=== PATIENT | female | born 1940 | race Caucasian/White ===

== ENCOUNTER → 2018-06-14 18:15 | Outpatient (REF) | payer MEDICARE, MEDICAID, SELFPAY ==
[2018-06-14 22:32] LABS: Bilirubin Negative (Negative); Blood Large (Negative); Clarity Sl Cloudy; Glucose Negative (Negative); Ketones Negative (Negative); Leukocyte Esterase Large (Negative); Nitrite Positive (Negative); Specific Gravity 1.015 (1.005-1.025); Urobilinogen 0.2 EU/dL (Up TO 0.2); pH 5.5 (5-8)
[2018-06-14 22:48] LABS: Bacteria Many HPF (Negative); RBC >50 (0-2)
[2018-06-14 22:49] LABS: C & S Indicated? C&S Done As Ordered; WBC >50 HPF (0-5)
== END ==
LOC: NCHCN 18:15
PROVIDERS: PCP Family Medicine; Visit Provider Family Medicine
DX: N39.0 Urinary tract infection, site not specified (principal)
CPT/HCPCS: 87077; 81003; 81015; 87086; 87186

== ENCOUNTER → 2018-06-15 17:04 | Outpatient (REF) | payer MEDICARE, MEDICAID, SELFPAY ==
[2018-06-15 19:12] LABS: HCT 36.9 % (36.0-46.0); HGB 11.4 g/dL (12.0-15.5)
[2018-06-15 19:45] LABS: BUN 33 mg/dL (7-18); CREATININE 1.38 mg/dL (0.55-1.02); Calcium 8.4 mg/dL (8.5-10.1); Chloride 105 mmol/L (98-107); Estimated GFR 37.07 (mL/min/1.73m2); Glucose 187 mg/dL (70-100); Potassium 4.3 mmol/L (3.5-5.1); Sodium 140 mmol/L (136-145)
[2018-06-15 19:50] LABS: Hemoglobin A1C 6.6 % (4.5-6.2)
== END ==
LOC: NCHCN 17:04
PROVIDERS: PCP Family Medicine; Visit Provider Family Medicine
DX: E11.9 Type 2 diabetes mellitus without complications (principal); N39.0 Urinary tract infection, site not specified
CPT/HCPCS: 80048; 83036; 85014; 85018

== ENCOUNTER → 2018-07-16 09:41 | Outpatient (BNVA) | payer MEDICARE, MEDICAID, SELFPAY | PROVIDERS: Visit Provider Urology | DX: N20.0 Calculus of kidney (principal); E11.9 Type 2 diabetes mellitus without complications; Z79.84 Long term (current) use of oral hypoglycemic drugs | CPT/HCPCS: 99213 ==

== ENCOUNTER → 2018-08-19 09:48 | Outpatient (BNVA) | payer MEDICARE, MEDICAID, SELFPAY | PROVIDERS: PCP Family Medicine; Visit Provider Orthopaedic Surgery | DX: M17.12 Unilateral primary osteoarthritis, left knee (principal) | CPT/HCPCS: 20610; 99211; 99213; J7325 ==

== ENCOUNTER → 2018-11-18 10:06 | Outpatient (BNVA) | payer MEDICARE, MEDICAID, SELFPAY | PROVIDERS: PCP Family Medicine; Referring Provider Family Medicine; Visit Provider Orthopaedic Surgery | DX: M17.12 Unilateral primary osteoarthritis, left knee (principal) | CPT/HCPCS: 20610; 99211; 99212; J1040 ==

== ENCOUNTER → 2019-02-28 13:52 | Outpatient (BNVA) | payer MEDICARE, MEDICAID, SELFPAY | PROVIDERS: PCP Family Medicine; Referring Provider Family Medicine; Visit Provider Orthopaedic Surgery | DX: M17.12 Unilateral primary osteoarthritis, left knee (principal) | CPT/HCPCS: 20610; 99211; 99212; J7325 ==

== ENCOUNTER 2019-03-29 11:40 | Outpatient (CLI) | payer MEDICARE, MEDICAID, SELFPAY ==
[2019-03-29 12:22] LABS: Anion Gap 14.3 mmol/L (3-11); BUN 30 mg/dL (7-18); CO2 22.7 mmol/L (21.0-32.0); CREATININE 1.44 mg/dL (0.55-1.02); Calcium 8.6 mg/dL (8.5-10.1); Chloride 105 mmol/L (98-107); Glucose 169 mg/dL (70-100); Potassium 4.2 mmol/L (3.5-5.1); Sodium 142 mmol/L (136-145)
[2019-03-29 13:00] LABS: Hemoglobin A1C 6.9 % (4.5-6.2)
== END 2019-03-29 12:00 ==
PROVIDERS: PCP Family Medicine; Visit Provider Nurse Practitioner Adult Health
DX: E11.40 Type 2 diabetes mellitus with diabetic neuropathy, unspecified (principal)
CPT/HCPCS: 36415; 80048; 83036

== ENCOUNTER 2019-06-07 11:08 | Outpatient (REF) | payer MEDICARE, MEDICAID, SELFPAY ==
[2019-06-07 13:58] LABS: Hemoglobin A1C 6.9 % (4.5-6.2)
== END 2019-06-07 11:28 ==
LOC: LBO 11:08
PROVIDERS: PCP Family Medicine; Visit Provider Nurse Practitioner Adult Health
DX: E11.40 Type 2 diabetes mellitus with diabetic neuropathy, unspecified (principal)
CPT/HCPCS: 83036

== ENCOUNTER → 2019-06-14 10:03 | Outpatient (BNVA) | payer MEDICARE, MEDICAID, SELFPAY | PROVIDERS: PCP Family Medicine; Referring Provider Family Medicine; Visit Provider Orthopaedic Surgery | DX: M17.12 Unilateral primary osteoarthritis, left knee (principal) | CPT/HCPCS: 20610; 99211; 99213; J7325 ==

== ENCOUNTER → 2019-09-16 10:02 | Outpatient (BNVA) | payer MEDICARE, MEDICAID, SELFPAY | PROVIDERS: PCP Family Medicine; Referring Provider Family Medicine; Visit Provider Student in an Organized Health Care Education/Training Program | DX: M17.12 Unilateral primary osteoarthritis, left knee (principal) | CPT/HCPCS: 99214 ==

== ENCOUNTER 2019-10-18 10:30 | Outpatient (REF) | payer MEDICARE, MEDICAID, SELFPAY ==
[2019-10-18 11:38] LABS: Anion Gap 11.1 mmol/L (3-11); BUN 37 mg/dL (7-18); CO2 24.9 mmol/L (21.0-32.0); CREATININE 1.48 mg/dL (0.55-1.02); Calcium 8.6 mg/dL (8.5-10.1); Chloride 107 mmol/L (98-107); Estimated GFR 34.11 (mL/min/1.73m2); Glucose 97 mg/dL (74-106); Potassium 4.1 mmol/L (3.5-5.1); Sodium 143 mmol/L (136-145)
== END 2019-10-18 10:50 ==
LOC: LBO 10:30
PROVIDERS: PCP Family Medicine; Visit Provider Nurse Practitioner Adult Health
DX: I10 Essential (primary) hypertension (principal); I73.9 Peripheral vascular disease, unspecified; E11.40 Type 2 diabetes mellitus with diabetic neuropathy, unspecified
CPT/HCPCS: 36415; 80048

== ENCOUNTER 2019-12-13 10:22 | Outpatient (CLI) | payer MEDICARE, MEDICAID, SELFPAY | END 2019-12-13 10:42 | PROVIDERS: PCP Family Medicine; Visit Provider Nurse Practitioner Adult Health | DX: E11.40 Type 2 diabetes mellitus with diabetic neuropathy, unspecified (principal) | CPT/HCPCS: 36415; 83036 ==

== ENCOUNTER 2020-05-15 16:47 | Outpatient (REF) | payer MEDICARE, MEDICAID, SELFPAY ==
[2020-05-15 19:38] LABS: Anion Gap 11.6 mmol/L (3-11); BUN 40 mg/dL (7-18); CO2 25.4 mmol/L (21.0-32.0); CREATININE 1.45 mg/dL (0.55-1.02); Calcium 8.7 mg/dL (8.5-10.1); Chloride 105 mmol/L (98-107); Estimated GFR 34.83 (mL/min/1.73m2); Glucose 180 mg/dL (74-106); Potassium 4.5 mmol/L (3.5-5.1); Sodium 142 mmol/L (136-145)
== END 2020-05-15 17:07 ==
LOC: LBN 16:47
PROVIDERS: PCP Family Medicine; Visit Provider Nurse Practitioner Adult Health
DX: E11.40 Type 2 diabetes mellitus with diabetic neuropathy, unspecified (principal); I73.9 Peripheral vascular disease, unspecified
CPT/HCPCS: 80048; 85025

== ENCOUNTER 2020-07-20 12:37 | Outpatient (REF) | payer MEDICARE, MEDICAID, SELFPAY ==
[2020-07-20 14:32] LABS: Bilirubin Negative (Negative); Blood Negative (Negative); Clarity Clear (Clear); Glucose Negative (Negative); Ketones Negative (Negative); Leukocyte Esterase Negative (Negative); Nitrite Negative (Negative); Urobilinogen 0.2 EU/dL (Up TO 0.2)
[2020-07-20 14:54] LABS: Bacteria Rare HPF (Negative); C & S Indicated? C&S Done As Ordered; Casts Negative LPF (Negative); Crystals Negative HPF (Negative); Epithelial Cells Few HPF (Negative); Mucus Trace (Negative); RBC 0-2 HPF (0-2)
== END 2020-07-20 12:57 ==
LOC: LBN 12:37
PROVIDERS: PCP Family Medicine; Visit Provider Nurse Practitioner Adult Health
DX: R82.90 Unspecified abnormal findings in urine (principal)
CPT/HCPCS: 81003; 81015; 87086

== ENCOUNTER 2021-01-19 18:41 | Outpatient (REF) | payer MEDICARE, MEDICAID, SELFPAY ==
[2021-01-19 19:12] LABS: Abs Immature Grans 0.08 10^3/uL (0.0-0.06); Absolute Basophil Count 0.06 10^3/uL (0.0-0.2); Absolute Eosinophil Count 0.61 10^3/uL (0.0-0.7); Absolute Lymphocyte Count 1.97 10^3/uL (1.2-3.4); Absolute Monocyte Count 1.06 10^3/uL (0.1-0.8); Absolute Neutrophil Count 8.14 10^3/uL (1.2-6.7); Basophils % 0.5; Eosinophils % 5.1; HCT 35.7 % (36.0-46.0); HGB 10.9 g/dL (11.2-15.7); Immature Grans % 0.7; Lymphocytes % 16.5; MCH 26.2 pg (27.0-33.0); MCHC 30.5 % (32.0-36.0); MCV 85.8 fL (80-95); MPV 9.5 fL (8.0-11.0); Monocytes % 8.9; Neutrophils % 68.3; Nucleated RBC 0 %; Platelet Count 363 10^3/uL (130-400); RBC 4.16 10^6/uL (3.93-5.22); RDW 15.9 % (11.7-14.6); WBC 11.92 10^3/uL (4.4-10.8)
[2021-01-19 19:31] LABS: ALT 19 U/L (14-59); AST 18 U/L (15-37); Albumin 2.7 g/dL (3.4-5.0); Alkaline Phosphatase 96 U/L (46-116); Anion Gap 13.4 mmol/L (3-11); BUN 37 mg/dL (7-18); Bilirubin, Total 0.2 mg/dL (0.2-1.0); CO2 23.6 mmol/L (21.0-32.0); CREATININE 1.9 mg/dL (0.55-1.02); Calcium 8.3 mg/dL (8.5-10.1); Chloride 102 mmol/L (98-107); Estimated GFR 25.44 (mL/min/1.73m2); Glucose 226 mg/dL (74-106); Potassium 3.7 mmol/L (3.5-5.1); Sodium 139 mmol/L (136-145); TSH (W/Ref FT4) 2.06 uIU/mL (0.36-3.74); Total Protein 7.2 g/dL (6.4-8.2)
[2021-01-20 16:20] LABS: Hemoglobin A1C 7.6 % (<5.7)
== END 2021-01-19 18:42 | disposition home or self-care (01) ==
LOC: LBN 18:41
PROVIDERS: PCP Family Medicine; Visit Provider Family Medicine
DX: E11.9 Type 2 diabetes mellitus without complications (principal); L03.818 Cellulitis of other sites; I10 Essential (primary) hypertension
CPT/HCPCS: 80053; 83036; 84443; 85025

== ENCOUNTER 2021-01-28 12:48 | Inpatient (IN) | payer MEDICARE, MEDICAID, SELFPAY ==
[2021-01-28] VITALS (33 sets, daily range): BP systolic 103–142; BP diastolic 43–78; PULSE 66–94; RESP 2–31; TEMP 36.1–37; O2SAT 91–97
--- NOTE | 2021-01-28 12:45 | RT.EKG_ITS ---
APPROVED REPORT Exam: Resting ECG Patient Location: E HR:76 bpm ECG Measurements Heart Rate 76 AXIS IN 186 P 53 QRSd 76 QRS -32 QT 353 T 54 QTc 398 Conclusion Sinus rhythm...normal P axis, V-rate 60- 99 Left ventricular hypertrophy...multiple voltage criteria Inferior infarct, old...Q >35mS, II III aVF sinus rhythm at 76, left axis, inferior Q waves, no STEMI, nondiagnostic EKG
[2021-01-28 13:32] LABS: Absolute Basophil Count 0.08 10^3/uL (0.0-0.2); Absolute Eosinophil Count 0.22 10^3/uL (0.0-0.7); Absolute Lymphocyte Count 2.12 10^3/uL (1.2-3.4); Basophils % 0.5; Eosinophils % 1.4; HCT 38.7 % (36.0-46.0); HGB 12.1 g/dL (11.2-15.7); Immature Grans % 0.6; Lymphocytes % 13.5; MCH 26.8 pg (27.0-33.0); MCHC 31.3 % (32.0-36.0); MCV 85.8 fL (80-95); MPV 9.6 fL (8.0-11.0); Monocytes % 11.1; Neutrophils % 72.9; Nucleated RBC 0 %; RBC 4.51 10^6/uL (3.93-5.22); RDW 15.9 % (11.7-14.6); WBC 15.71 10^3/uL (4.4-10.8)
[2021-01-28 13:40] LABS: Absolute Monocyte Count 1.74 10^3/uL (0.1-0.8); Absolute Neutrophil Count 11.45 10^3/uL (1.2-6.7)
[2021-01-28 13:53] LABS: ALT 42 U/L (14-59); AST 24 U/L (15-37); Albumin 2.5 g/dL (3.4-5.0); Alkaline Phosphatase 101 U/L (46-116); Anion Gap 12.7 mmol/L (3-11); BUN 37 mg/dL (7-18); Bilirubin, Total 0.3 mg/dL (0.2-1.0); CO2 23.3 mmol/L (21.0-32.0); CREATININE 1.8 mg/dL (0.55-1.02); Calcium 8.6 mg/dL (8.5-10.1); Chloride 104 mmol/L (98-107); Estimated GFR 27.07 (mL/min/1.73m2); Glucose 120 mg/dL (74-106); Magnesium 2.2 mg/dL (1.8-2.4); Potassium 4.4 mmol/L (3.5-5.1); Sodium 140 mmol/L (136-145)
[2021-01-28 13:54] LABS: Diff Comment Diff Reviewed; Platelet Count 374 10^3/uL (130-400); RBC Morphology Normal
[2021-01-28 13:55] LABS: Troponin I < 0.05 ng/mL (<0.06)
[2021-01-28 14:21] LABS: NT-proBNP 1206 pg/mL (<300)
--- NOTE | 2021-01-28 14:29 | DI.RAD_ITS ---
EXAM: XR PORTABLE CHEST AP CLINICAL HISTORY: chest pain, cough TECHNIQUE: 2D digital imaging was performed. COMPARISON: CR CHEST 2 VIEWS PA,LAT from 11/08/2016 FINDINGS: The examination is limited due to poor inspiration and crowding of the pulmonary vasculature. The he art appears to be at the upper limits of normal to mildly enlarged. Pulmonary vasculature appears wi thin normal limits. No focal consolidating infiltrates are appreciated. No effusions or pneumothora avani are present. Age-appropriate degenerative changes are seen in the spine and shoulders. IMPRESSION: Limited examination due to poor inspiration and crowding of the pulmonary vasculature. No definite a cute pulmonary process. If symptoms persist, a PA and lateral view within the radiology department s hould be considered. DATA REPOSITORY: RADIATION DOSE DELIVERED:
[2021-01-28 14:30] LABS: D-Dimer 1750 ng/mlFEU (<500)
[2021-01-28 14:43] LABS: COVID-19 PCR Negative (Negative); Influenza A PCR Negative (Negative); Influenza B PCR Negative (Negative); RSV PCR Negative (Negative)
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
[2021-01-28] MEDS: CEFEPIME 2 GM in Normal Saline 100 ML IVPB (15:21)
--- NOTE | 2021-01-28 15:30 | DI.CT_ITS ---
EXAM: CT CHEST WO CLINICAL HISTORY: cough, chest pain. TECHNIQUE: Multi planar reconstructions were performed. CONTRAST MATERIAL: None COMPARISON: CR XR PORTABLE CHEST AP from 01/28/2021 FINDINGS: CHEST: LUNGS: Right hemidiaphragm is elevated. Suboptimal inspiration, similar to the chest x-ray earlier t rex. However, there mild increased markings in the posterior basal segment of the right lower lobe. No pleural effusions. No pneumothorax. MEDIASTINUM: There is no obvious hilar nor mediastinal adenopathy. Visualized thyroid unremarkable. CARDIAC: Mild cardiomegaly. There is also a small pericardial effusion which exhibits 4 millimeters thickness.Caliber of the thoracic aorta is within normal limits. VISUALIZED UPPER ABDOMEN:There are no significant adrenal masses. Partially included 3.5 centimeter cyst in the superior pole left kidney. Hepatic steatosis. No splenomegaly. OSSEOUS: No significant osseous lesions.Multilevel chronic degenerative changes in the thoracolumbar spine. IMPRESSION: 1. Mild cardiomegaly and there is a small pericardial effusion with 4 millimeter thickness. 2. Mild increased markings in the posterior basal segment right lower lobe. No pleural effusions. 3. Mildly elevated right hemidiaphragm, apparently chronic. Low lung volumes again noted. RADIATION DOSE DELIVERED: 661.43mGy.cm Total DLP DATA REPOSITORY: All CT scans at this facility are submitted to the National Radiology Data Registry (NRDR) Dose Index Registry (DIR) with the [employer] (ACR). RADIATION OPTIMIZATION: All CT scans at this facility use at least one of these dose optimization te chniques: automated exposure control; mA and/or kV adjustment per patient size (includes targeted exa ms where dose is matched to clinical indication); or iterative reconstruction.
[2021-01-28] MEDS: VANCOMYCIN 1,500 MG in Normal Saline 250 ML 166.6666 MG IVPB (16:06)
[2021-01-28 16:28] LABS: Troponin I < 0.05 ng/mL (<0.06)
--- NOTE | 2021-01-28 16:34 | DI.VRAD_ITS ---
PROCEDURE INFORMATION: Exam: CT Chest Without Contrast; Diagnostic Exam date and time: 01/28/2021 4:17 PM Age: 80 years old Clinical indication: Pain; Chest pressure; Additional info: Cough TECHNIQUE: Imaging protocol: Diagnostic computed tomography of the chest without contrast. 3D rendering (Not supervised by radiologist): MIP and/or 3D reconstructed images were created by the technologist. COMPARISON: CR XR PORTABLE CHEST AP 01/28/2021 2:22 PM FINDINGS: Lungs: The lung volumes appear low with chronic elevation of the right hemidiaphragm. Pleural spaces: Unremarkable. No pneumothorax. No pleural effusion. Heart: Cardiomegaly is present. A small pericardial effusion is present. Aorta: There are mild calcific atherosclerotic changes of the thoracic aorta and coronary arteries. Lymph nodes: Unremarkable. No enlarged lymph nodes. Bones/joints: Advanced chronic degenerative changes spine are present. Soft tissues: Unremarkable. Other findings: Morbid obesity is present. IMPRESSION: 1. Cardiomegaly. 2. Small pericardial effusion. 3. Atherosclerosis. 4. Advanced chronic degenerative change of the spine. 5. Low lung volumes with chronic right hemidiaphragmatic elevation. 6. Morbid obesity. Dictated and Authenticated by: Prateek Jarrett MD. Ordering:ABEBE Cortes MD
[2021-01-28 17:12] LABS: Procalcitonin 0.1 ng/mL
--- NOTE | 2021-01-28 17:46 | W.PM.HP.N ---
Date of service: 01/28/21 Time of Service: 17:47 Assessment and Plan Assessment and plan (1) Chest pain: Status: Acute Assessment and plan: I thin musculoskeletal pain is leading possibility, but with pleuritic pain and elevated d-Dimer must exclude PE. Will avoid CTA given renal function (GFR 23) will give empiric dose Lovenox tonight and obtain LE U/S in AM. I see no indication for continued antibiotics at present. Will also obtain U/A given leukocytosis. History of Present Illness History of Present Illness Chief Complaint: CP Narrative: 80 female from [facility], has had some 2 weeks of apparently occasional dry cough, and now presents with one day of pleuritic substernal CP. Unclear if SOB, difficult historian. In ER findings of note for leukocytosis (15) and there was concern raised for pneumonia. Patient provisionally admitted pending CT chest, received doses of cefipime and Vanco in interim. I was then asked to take over evaluation. CT chest shows no pneumonia. EKG no acute changes, and trop neg x 2. d-Dimer elevated at 1504. Patient reports chronic LE swelling and variable pain but nothing out of the ordinary for her. Patient somewhat contradictory on this point but in the end it appears she is stating that the pain is worse with deep breathing. At the time of visit states she is comfortable at rest, and is not coughing. Review of Systems All systems reviewed & are unremarkable except as noted in HPI and below PFSH Social History Smoking/Tobacco Use Status: Never Smoking risk assessment performed?: Yes Alcohol Intake: never Drug use: Never Substance use type: does not use Do you feel safe at home: Yes Do you feel safe in your relationship?: Yes Meds Home Medications and Allergies Allergies Allergy/AdvReac Type Severity Reaction Status Date / Time latex Allergy Unverified 09/16/19 10:16 levofloxacin [From Levaquin] Allergy Unverified 01/28/21 13:32 losartan [From Cozaar] Allergy Unverified 01/28/21 13:32 tramadol [From Ultram] Allergy Unverified 01/28/21 13:32 Home Medications Medication Instructions Recorded Confirmed Type Centrum Silver 1 tab PO DAILY 07/22/14 01/28/21 History Fish Oil 1 cap PO DAILY 07/22/14 01/28/21 History Glucosamine Sulf-Chondroitin 2 cap PO DAILY 07/22/14 01/28/21 History aspirin [Aspir-Low] 81 mg PO DAILY 07/22/14 01/28/21 History meclizine [Antivert] 25 mg PO .Q6HR PRN 07/22/14 09/16/19 History amlodipine 1 tab PO DAILY 09/26/16 01/28/21 History furosemide 1 tab PO DAILY 09/26/16 01/28/21 History Blood Glucose Test #90 strip 10/01/16 09/16/19 Rx lancets [Lancets,Ultra Thin] #90 ea 10/01/16 09/16/19 Rx acetaminophen [Tylenol] 650 mg PO Q4H PRN PRN tab 10/04/16 01/28/21 Rx glimepiride 2 mg PO DAILY@0800 #30 tab 10/04/16 01/28/21 Rx lisinopril 5 mg PO DAILY #30 tab 10/04/16 09/16/19 Rx pregabalin [Lyrica] 75 mg PO HS #30 cap 10/04/16 09/16/19 Rx Exam Narrative Exam Narrative: 128/78, 82, 36.7, 18, 92% RA. HEENT atraumatic; neck supple, cannot read JVP; carotids brisk; lung few fine basilar rales; heart RRR with 2/6 sys murmur LSB; chest wall tender lower parasternal area which seems to reproduce her pain; abdomen soft and NT; extremities 2+ pedal edema; calves NT, Trish's negative, no cords; neuro Ox3, moves all 4s Results Labs Result diagrams: 01/28/21 12:10 01/28/21 12:10 Labs: Laboratory Results - last 24 hr 01/28/21 01/28/21 01/28/21 12:10 12:10 12:10 WBC 15.71 H RBC 4.51 Hgb 12.1 Hct 38.7 MCV 85.8 MCH 26.8 L MCHC 31.3 L RDW 15.9 H Plt Count 374 MPV 9.6 Immature Gran % 0.6 Neutrophils % 72.9 Lymphocytes % 13.5 Monocytes % 11.1 Eosinophils % 1.4 Basophils % 0.5 Nucleated RBC % 0 Absolute Neutrophils 11.45 H Absolute Lymphocytes 2.12 Absolute Monocytes 1.74 H Absolute Eosinophils 0.22 Absolute Basophils 0.08 RBC Morphology Normal D-Dimer 1750 H Sodium 140 Potassium 4.4 Chloride 104 Carbon Dioxide 23.3 Anion Gap 12.7 H BUN 37 H Creatinine 1.8 H Estimated GFR/1.73 m2 27.07 Glucose 120 H Calcium 8.6 Magnesium 2.2 Total Bilirubin 0.3 AST 24 ALT 42 Alkaline Phosphatase 101 Troponin I < 0.05 NT-Pro-B Natriuret Pep Total Protein 8.0 Albumin 2.5 L Procalcitonin COVID-19 Source SARS-CoV-2 (PCR) Influenza Type A (PCR) Influenza Type B (PCR) RSV (PCR) 01/28/21 01/28/21 01/28/21 12:10 12:10 13:45 WBC RBC Hgb Hct MCV MCH MCHC RDW Plt Count MPV Immature Gran % Neutrophils % Lymphocytes % Monocytes % Eosinophils % Basophils % Nucleated RBC % Absolute Neutrophils Absolute Lymphocytes Absolute Monocytes Absolute Eosinophils Absolute Basophils RBC Morphology D-Dimer Sodium Potassium Chloride Carbon Dioxide Anion Gap BUN Creatinine Estimated GFR/1.73 m2 Glucose Calcium Magnesium Total Bilirubin AST ALT Alkaline Phosphatase Troponin I NT-Pro-B Natriuret Pep 1206 H Total Protein Albumin Procalcitonin 0.1 COVID-19 Source Nasopharyx SARS-CoV-2 (PCR) Negative Influenza Type A (PCR) Negative Influenza Type B (PCR) Negative RSV (PCR) Negative 01/28/21 16:00 WBC RBC Hgb Hct MCV MCH MCHC RDW Plt Count MPV Immature Gran % Neutrophils % Lymphocytes % Monocytes % Eosinophils % Basophils % Nucleated RBC % Absolute Neutrophils Absolute Lymphocytes Absolute Monocytes Absolute Eosinophils Absolute Basophils RBC Morphology D-Dimer Sodium Potassium Chloride Carbon Dioxide Anion Gap BUN Creatinine Estimated GFR/1.73 m2 Glucose Calcium Magnesium Total Bilirubin AST ALT Alkaline Phosphatase Troponin I < 0.05 NT-Pro-B Natriuret Pep Total Protein Albumin Procalcitonin COVID-19 Source SARS-CoV-2 (PCR) Influenza Type A (PCR) Influenza Type B (PCR) RSV (PCR) Last Vital Signs Temp 36.7 C 01/28/21 17:15 Pulse 82 01/28/21 17:15 Resp 18 01/28/21 17:15 BP 128/78 01/28/21 17:15 Pulse Ox 92 01/28/21 17:15 COVID-19 Screening Have you, or household traveled for leisure in last 14 days?: No Had IN PERSON contact w/suspected or confirmed C-19 person: No
[2021-01-28] MEDS: Albuterol/Ipratropium 3 ML UPD VIAL UPD (18:21)
[2021-01-28] MEDS: Enoxaparin 100 MG/ML SYR 90 MG SC (18:52)
[2021-01-29] VITALS (15 sets, daily range): BP systolic 118–138; BP diastolic 62–74; PULSE 72–94; RESP 1–36; TEMP 36.3–37.8; O2SAT 89–98
--- NOTE | 2021-01-29 | DI.US_ITS ---
EXAM: US LOWER EXTREMITY VENOUS RT CLINICAL HISTORY: pleuritic CP, elevated d-Dimer. TECHNIQUE: Ultrasound performed using standard protocol. COMPARISON: US CAROTID ULTRASOUND from 05/31/2012 FINDINGS: Duplex venous ultrasound was performed according to the usual protocol. The deep veins are freely com pressible throughout and there is normal flow augmentation with manual calf compression. 2D and Doppl er evaluation are unremarkable. IMPRESSION: No evidence of deep venous thrombosis of the right lower extremity. DATA REPOSITORY:
[2021-01-29] MEDS: Albuterol/Ipratropium 3 ML UPD VIAL UPD ×4 (00:11→18:38)
[2021-01-29] MEDS: Acetaminophen 325 MG TAB 650 MG PO (05:33)
[2021-01-29 06:57] LABS: Abs Immature Grans 0.14 10^3/uL (0.0-0.06); Absolute Basophil Count 0.06 10^3/uL (0.0-0.2); Absolute Eosinophil Count 0.02 10^3/uL (0.0-0.7); Absolute Lymphocyte Count 2.55 10^3/uL (1.2-3.4); Basophils % 0.3; Eosinophils % 0.1; HCT 36.2 % (36.0-46.0); HGB 11.3 g/dL (11.2-15.7); Immature Grans % 0.7; Lymphocytes % 13.2; MCH 26.5 pg (27.0-33.0); MCHC 31.2 % (32.0-36.0); MCV 84.8 fL (80-95); MPV 9.5 fL (8.0-11.0); Monocytes % 12.2; Neutrophils % 73.5; Nucleated RBC 0 %; Platelet Count 353 10^3/uL (130-400); RBC 4.27 10^6/uL (3.93-5.22); RDW 15.8 % (11.7-14.6); RDW-SD 48.7 fL; WBC 19.35 10^3/uL (4.4-10.8)
[2021-01-29 07:05] LABS: Absolute Monocyte Count 2.36 10^3/uL (0.1-0.8); Absolute Neutrophil Count 14.22 10^3/uL (1.2-6.7)
[2021-01-29 07:17] LABS: ALT 72 U/L (14-59); AST 43 U/L (15-37); Albumin 2.2 g/dL (3.4-5.0); Alkaline Phosphatase 90 U/L (46-116); Anion Gap 13.9 mmol/L (3-11); BUN 40 mg/dL (7-18); Bilirubin, Direct 0.1 mg/dL (0.0-0.2); Bilirubin, Total 0.4 mg/dL (0.2-1.0); CO2 21.1 mmol/L (21.0-32.0); CREATININE 2.1 mg/dL (0.55-1.02); Calcium 8.4 mg/dL (8.5-10.1); Chloride 106 mmol/L (98-107); Estimated GFR 22.66 (mL/min/1.73m2); Glucose 174 mg/dL (74-106); Magnesium 2.1 mg/dL (1.8-2.4); Potassium 4.1 mmol/L (3.5-5.1); Sodium 141 mmol/L (136-145); Total Protein 7.1 g/dL (6.4-8.2)
[2021-01-29 07:29] LABS: Diff Comment Diff Reviewed
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
--- NOTE | 2021-01-29 09:15 | W.PM.PROGNOT ---
Date of Service Date of service: 01/29/21 Time of Service: 09:15 Assessment and Plan Assessment and plan (1) Chest pain: Status: Acute Assessment and plan: thought to be musculoskeletal pain, but with pleuritic pain and elevated d-Dimer must exclude PE. Will avoid CTA given renal function (GFR 23) given empiric lovenox. Right LE U/S negative, patient refused completion of ultrasound on left. VQ scan ordered (2) Leukocytosis: Status: Acute Assessment and plan: no clear source of infection. no evidence of pneumonia on CT and no cough or shortness of breath she has been afebrile. repeat UA pending, todays sample grossly contaminated. has been given broad spectrum antibiotics, zosyn day 2, while blood cutures and UA pending continue to look for source of infection (3) DVT prophylaxis: Status: Acute Assessment and plan: fully anticoagulated while PE rule out (4) Discharge planning issues: Status: Acute Assessment and plan: back to [facility] and rehab when medically stable case management following palliative care consult placed: goals of care in setting of refusal of testing. discussed with Dr Hi. Subjective Subjective Patient reports: no new complaints Interval history since last seen: refused complete bilateral lower ext ultrasound, only completed right side. has been uncooperative with care at times. white count increased to 19 from 15 yesterday. no obvious source of infection identified. no cough or shortness of breath. no c/o pleuritic chest pain on exam Exam Narrative Exam Narrative: Constitutional: elderly frail female, well and [id number], difficult historian HENT: head atraumatic/normocephalic/normal inspection, mucous membranes moist Eyes: conjunctiva normal, sclera normal, Neck: normal ROM Chest: normal inspection Resp: normal work of breathing, LCTAB Cardio: normal rate, normal rhythm, no murmur appreciated GI: round, abdomen soft, non-tender, non-distended Back: normal inspection, no rash Skin: warm, dry, normal color, no rash Neuro: alert, not altered, grossly non-focal, normal tone Ext: no edema Psych: irritated, refusing some care and testing Objective Last Vital Signs Temp 36.5 C 01/29/21 07:32 Pulse 72 01/29/21 07:32 Resp 18 01/29/21 07:32 BP 122/68 01/29/21 07:32 Pulse Ox 95 01/29/21 08:07 Laboratory Results - last 24 hr 01/28/21 01/28/21 01/28/21 12:10 12:10 12:10 WBC 15.71 H RBC 4.51 Hgb 12.1 Hct 38.7 MCV 85.8 MCH 26.8 L MCHC 31.3 L RDW 15.9 H Plt Count 374 MPV 9.6 Immature Gran % 0.6 Neutrophils % 72.9 Lymphocytes % 13.5 Monocytes % 11.1 Eosinophils % 1.4 Basophils % 0.5 Nucleated RBC % 0 Absolute Neutrophils 11.45 H Absolute Lymphocytes 2.12 Absolute Monocytes 1.74 H Absolute Eosinophils 0.22 Absolute Basophils 0.08 RBC Morphology Normal D-Dimer 1750 H Sodium 140 Potassium 4.4 Chloride 104 Carbon Dioxide 23.3 Anion Gap 12.7 H BUN 37 H Creatinine 1.8 H Estimated GFR/1.73 m2 27.07 Glucose 120 H Calcium 8.6 Magnesium 2.2 Total Bilirubin 0.3 Conjugated Bilirubin AST 24 ALT 42 Alkaline Phosphatase 101 Troponin I < 0.05 NT-Pro-B Natriuret Pep Total Protein 8.0 Albumin 2.5 L Procalcitonin COVID-19 Source SARS-CoV-2 (PCR) Influenza Type A (PCR) Influenza Type B (PCR) RSV (PCR) 01/28/21 01/28/21 01/28/21 12:10 12:10 13:45 WBC RBC Hgb Hct MCV MCH MCHC RDW Plt Count MPV Immature Gran % Neutrophils % Lymphocytes % Monocytes % Eosinophils % Basophils % Nucleated RBC % Absolute Neutrophils Absolute Lymphocytes Absolute Monocytes Absolute Eosinophils Absolute Basophils RBC Morphology D-Dimer Sodium Potassium Chloride Carbon Dioxide Anion Gap BUN Creatinine Estimated GFR/1.73 m2 Glucose Calcium Magnesium Total Bilirubin Conjugated Bilirubin AST ALT Alkaline Phosphatase Troponin I NT-Pro-B Natriuret Pep 1206 H Total Protein Albumin Procalcitonin 0.1 COVID-19 Source Nasopharyx SARS-CoV-2 (PCR) Negative Influenza Type A (PCR) Negative Influenza Type B (PCR) Negative RSV (PCR) Negative 01/28/21 01/29/21 01/29/21 16:00 06:28 06:28 WBC 19.35 H RBC 4.27 Hgb 11.3 Hct 36.2 MCV 84.8 MCH 26.5 L MCHC 31.2 L RDW 15.8 H Plt Count 353 MPV 9.5 Immature Gran % 0.7 Neutrophils % 73.5 Lymphocytes % 13.2 Monocytes % 12.2 Eosinophils % 0.1 Basophils % 0.3 Nucleated RBC % 0 Absolute Neutrophils 14.22 H Absolute Lymphocytes 2.55 Absolute Monocytes 2.36 H Absolute Eosinophils 0.02 Absolute Basophils 0.06 RBC Morphology D-Dimer Sodium 141 Potassium 4.1 Chloride 106 Carbon Dioxide 21.1 Anion Gap 13.9 H BUN 40 H Creatinine 2.1 H Estimated GFR/1.73 m2 22.66 Glucose 174 H Calcium 8.4 L Magnesium 2.1 Total Bilirubin 0.4 Conjugated Bilirubin 0.1 AST 43 H ALT 72 H Alkaline Phosphatase 90 Troponin I < 0.05 NT-Pro-B Natriuret Pep Total Protein 7.1 Albumin 2.2 L Procalcitonin COVID-19 Source SARS-CoV-2 (PCR) Influenza Type A (PCR) Influenza Type B (PCR) RSV (PCR)
--- NOTE | 2021-01-29 09:47 | IN_ITS ---
Date of service: 01/29/21 Time of Service: 09:47 PT Notes Visit Reasons: HCAP Physical Therapy Inpatient Initial Evaluation Date: 01/29/2021 Referring Doctor: Fabi Hi MD PT Orders: PT CONSULT: Limited ability Precautions: Fall. Standard. Activity as tolerated. Patient Profile/Admitting Diagnosis: Valeria is an 80-year-old female who presented to the ED on 01/28/2021 with chest pain associated with deep breathing and chronic leg pain swelling. CT of the chest showed negative for pneumonia. EKG exhibited no acute abnormality. Troponin negative. PMHX: Primary osteoarthritis of left knee Physical deconditioning Renal insufficiency Anemia Hypertension Kidney stones Cellulitis of right lower leg Pseudomonal bacteremia Diabetes mellitus Social History/Home Situation: Valeria is a longtime resident of [facility]. Supervision with all mobility ADL performance using front wheeled walker. Equipment Owned/DME: Front wheel walker Subjective: Denies chest pain, leg pain, dizziness, and headache throughout session. Verbalizes that LE swelling has been a chronic issue. Agreeable to PT consult. Objective: General Observation: Telemetry monitoring in place. TEDS on B legs. IV in left UE. Mental Status: Alert and oriented x4 Pain: None Reported Vital Signs: Oxygen saturation ranged from 94% to 96% on 1 L throughout ambulation activity ROM: Right Upper Extremity: Shoulder Flexion allows only up to about 90 degrees. Shoulder abduction allows only up to about 90 degrees. Elbow flexion WFL. Wrist flexion WFL. Opening and closing of hand WFL. Left Upper Extremity: Shoulder Flexion allows only up to about 90 degrees. Shoulder abduction allows only up to about 90 degrees. Elbow flexion WFL. Wrist flexion WFL. Opening and closing of hand WFL. Right Lower Extremity: Hip flexion WFL. Hip abduction WFL. Knee flexion WFL. Ankle dorsiflexion WFL. Ankle plantarflexion WFL. Left Lower Extremity: Hip flexion WFL. Hip abduction WFL. Knee flexion WFL. Ankle dorsiflexion WFL. Ankle plantarflexion WFL. Strength: Right Upper Extremity: Shoulder flexors 3-/5. Shoulder abductors 3-/5. Elbow flexors 4/5. Elbow extensors 4/5. Race Relations Professor strong. Left Upper Extremity: Shoulder flexors 3-/5. Shoulder abductors 3-/5. Elbow flexors 4/5. Elbow extensors 4/5. Race Relations Professor strong. Right Lower Extremity: Hip flexors 4-/5. Hip abductors 4-/5. Knee flexors 4-/5. Knee extensors 4- are really otherwise 4-/5. Ankle dorsiflexors 4-/5. Ankle plantarflexors 4-/5. Left Lower Extremity: Hip flexors 4-/5. Hip abductors 4-/5. Knee flexors 4-/5. Knee extensors 4- are really otherwise 4-/5. Ankle dorsiflexors 4-/5. Ankle plantarflexors 4-/5. Sensation: Intact as to pain and pressure on bilateral lower extremities. Bed Mobility/Transfers: Supine to sit standby assist Sit to supine standby assist Sit to stand standby assist Stand to sit standby assist Bed to chair standby assist Chair to bed standby assist Gait: Patient through level surface ambulation of 80 feet + feet using front wheeled walker with full weight bearing requiring contact-guard assist and wheelchair follow by PT with mild shortness of breath seen requiring 2 seated rests. Saturated at 98% on 0.5 L of oxygen per minute. Increased forefoot pronation on bilateral side with right more affected than the left. Denies chest pain, dizziness, headache, and lightheadedness throughout ambulation activity. Balance: Static Sitting: Normal Dynamic Sitting: Normal Static Standing: Fair Dynamic Standing: Fair Special Tests: Mobility Limitations Standardized Measure [facility] AM-PAC 6 clicks Basic Mobility Inpatient Short Form: Raw Score: 22 CMS Score: 21% Informed Consent/Education: Patient instructed in purpose of PT consult and plan of care. Assessment: Valeria requires the use of a front wheeled walker increase activity tolerance and fall risk during all mobility ADL performance, shortness of breath, impaired gait pattern, and strength deficits resulting from admitting diagnosis. Patient presents with clinical signs and symptoms consistent with current/admitting diagnoses that have resulted to mobility limitations, gait instability, generalized weakness, and impairment of motor control as demonstrat ed by the following impairment level findings: 1. Decreased strength to B UE/LE major muscle groups 2. Impaired standing balance 3. Impaired activity tolerance 4. B LE swelling (chronic) Impairments are contributing to the following functional limitations: 1. Inability to safely ambulate without assistive device and physical assistance 2. Increase completion time for mobility ADL performance 3. Increased fall risk 4. Inability to negotiate steps alone safely Patient is assessed as a 93342 moderate complexity based on the following: History: 80-year-old female with impairment level findings, functional limitations, and past medical history as indicated above Examination: Demonstrable impairment in strength, balance, and mobility level with underlying impairments and functional limitations as documented above Presentation:Evolving Decision Makin moderate complexity Goals: Goals X1 week 1. Supine-Sit independent 2. Sit-Supine independent 3. Sit-Stand independent 4. Stand-Sit independent 5. Bed-Chair independent 6. Chair-Bed independent 7. Independent gait on level surface with use of least restrictive device for at least 300 feet without report of pain nor dyspnea 8. Good static and dynamic standing balance/tolerance Plan of Care/Treatment Plan: 1-2x/day, 7 days/week x 1 week. Plan of care has been reviewed with the PEARL GLUE OPERATOR providing the service under Physical Therapy direction. Initiate Physical Therapy intervention for strengthening, bed mobility, transfers, gait, stairs, balance training, use of assistive device. DISCHARGE RECOMMENDATIONS: Return to SNF when medically cleared by hospitalist. TREATMENT CODE/TIME: 63510 x 25 minutes, 82946 x 14 minutes beginning at 9:47 AM. Thank you for the opportunity to participate in the care of this patient. Gilma Lloyd PT, DPT, CLT [facility] [place], [place]
[2021-01-29 10:04] LABS: Bilirubin Negative (Negative); Blood Moderate (Negative); Clarity Sl Cloudy (Clear); Glucose Negative (Negative); Ketones Negative (Negative); Leukocyte Esterase Small (Negative); Nitrite Negative (Negative); Urobilinogen 0.2 EU/dL (Up TO 0.2); pH 5.5 (5-8)
[2021-01-29] MEDS: PIPERACILLIN/TAZO 3.375 GM in Normal Saline 50 ML IVPB ×3 (10:37→22:46)
[2021-01-29] MEDS: Normal Saline 500 ML 30 ML IV (10:37)
[2021-01-29 11:45] LABS: WBC 20-50 HPF (0-5)
[2021-01-29 11:46] LABS: Bacteria Few HPF (Negative); Crystals Negative HPF (Negative); Epithelial Cells Many HPF (Negative); Mucus Trace (Negative); Other Cells Rare Renal (Negative); RBC 20-50 HPF (0-2)
[2021-01-29 11:47] LABS: C & S Indicated? No/Sq. Contamination; Casts 3-5 Fine Granular LPF (Negative)
--- NOTE | 2021-01-29 14:11 | CHAPLAIN ---
Valeria was sitting up in a chair when I visited. She had a difficulty time hearing me and and I'm not sure she understood who I was until the end of our conversation. She was pleasant and said she is feeling better today, but wasn't sure how long she'd been here. She said she walked with PT earlier, but she wasn't sure how to get back to her room because the hospital is so big. When I asked if she'd been in touch with family by phone, she said her brother is worse off than me, and his is taking care of him. 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
--- NOTE | 2021-01-29 14:12 | PT.INTREAT ---
Date of service: 01/29/21 Time of Service: 14:12 PT Notes Visit Reasons: HCAP Physical Therapy Inpatient Treatment Note Date: 01/29/2021 Precautions: Fall. Standard. Activity as tolerated. Subjective: Denies chest pain, leg pain, dizziness, and headache throughout session. Agreeable to PT afternoon session. Objective: General Observation: Telemetry monitoring in place. TEDS on B legs. IV access in left UE. Mental Status: Alert and oriented x4 Pain: None Reported Vital Signs: Oxygen saturation at 98% after ambulation activity on RA Bed Mobility/Transfers: Sit to supine contact guard assist Supine to sit standby assist Sit to supine standby assist Sit to stand standby assist Stand to sit standby assist Bed to chair standby assist Chair to bed standby assist Gait: Patient through level surface ambulation of 125 feet + 125 feet using front wheeled walker with full weight bearing requiring stand by assist and wheelchair follow by PT with mild shortness of breath seen requiring 1 seated rest. Saturated at 98% on RA. Increased forefoot pronation on bilateral side with right more affected than the left. Denies chest pain, dizziness, headache, B LE pain, and lightheadedness throughout ambulation activity. THERA EX: Initiated seated level active B LE range of motion exercises x 10 reps. See exercise flow sheet for details. Balance: Static Sitting: Normal Dynamic Sitting: Normal Static Standing: Fair Dynamic Standing: Fair Assessment: Increased gait speed and improved activity tolerance for walking. Remains short of breath requiring one seated rest. No report of pain in chest and B LE. DISCHARGE RECOMMENDATIONS: Return to SNF when medically cleared by hospitalist. TREATMENT CODE/TIME: 60086 x 20, 85945 x 10 minutes beginning at 14:12 PM.
--- NOTE | 2021-01-29 15:23 | W.INDIABCONS ---
Date of service: 01/29/21 Time of Service: 15:23 Diabetes Inpatient Consult DESCRIPTION/ASSESSMENT: 80 year old female admitted from skilled nursing with chest pain with hx of DM2, obesity, HTN. Most recent A1C: 7.6% indicating adequately controlled DM in view of advanced age, comorbidities. Following diabetic diet with excellent intake. Not at nutritional risk. INTERVENTION: Diabetic education not warranted as lives in SNF PLAN: will monitor po intake, labs and weight Time Spent in Nutritional Counseling and Treatment: 0
[2021-01-29] MEDS: Enoxaparin 100 MG/ML SYR 90 MG SC (18:29)
[2021-01-29] MEDS: Normal Saline Flush 10 ML SYR IVP (22:46)
[2021-01-30] VITALS (11 sets, daily range): BP systolic 120–143; BP diastolic 65–83; PULSE 71–100; RESP 8–20; TEMP 36.4–37.5; O2SAT 91–97
--- NOTE | 2021-01-30 | DI.RAD_ITS ---
EXAM: XR CHEST 2V PA LATERAL CLINICAL HISTORY: vq scan, pleuritic chest pain, elevated ddimer, r/ TECHNIQUE: 2D digital imaging was performed. COMPARISON: CT CT CHEST WO from 01/28/2021 CR XR PORTABLE CHEST AP from 01/28/[address] CHEST WO from 01/28/2021 FINDINGS: Exam is limited by patient body habitus and poor pulmonary inflation. There are increased densities seen above the left diaphragm. Heart appears enlarged. The aorta is tortuous. The right lung appe ars clear. No effusions are seen. IMPRESSION: Left lower lobe infiltrate versus atelectasis. Poor pulmonary inflation.
[2021-01-30] MEDS: Albuterol/Ipratropium 3 ML UPD VIAL UPD ×4 (00:09→23:23)
[2021-01-30] MEDS: Normal Saline Flush 10 ML SYR IVP ×2 (04:04→21:55)
[2021-01-30] MEDS: PIPERACILLIN/TAZO 3.375 GM in Normal Saline 50 ML IVPB ×4 (04:05→21:55)
--- NOTE | 2021-01-30 08:27 | PDOC.CMPRO ---
- If Service Date Differs Date of service: 01/30/21 Time of Service: 08:27 Care Management Progress Note S/O:Valeria was sitting up in a chair when CM met with her. She was dozing when CM entered the room and explained that she was tired and had not slept well last night. Valeria seemed to be down today and made a comment about being nearly already, but would not expound on the statement. She shared with CM that she is sick of being wired for every darn thing, referring to telemetry and her oxygen tubing. Valeria had a palliative care consult today and informed the provider that she does not want to come back to the hospital. She will return to [facility] tomorrow morning and may be moving towards comfort measures. A: Valeria is an 80 year old woman admitted on 01/28/21 with HAP P: Valeria will return to her home at [facility] when she is medically cleared. She will follow up with their provider and plan of care. Valeria will transport via facility wheelchair van. CM will continue to support Valeria and assess for discharge planning needs.
--- NOTE | 2021-01-30 09:00 | DI.NM_ITS ---
EXAM: NM LUNG SCAN VENT PERF AEROS CLINICAL HISTORY: elevated Ddimer, pleuritic chest pain. TECHNIQUE: Injected Dose: Ventilation: 45 mCi Tc-99m DTPA via inhalation Perfusion: 4 mCi Tc-99m MAA via IV COMPARISON: CT CT CHEST WO from 01/28/2021 CR XR CHEST 2V PA LATERAL from 01/30/2021 CR XR CHEST 2V PA LATERAL from 01/30/2021 FINDINGS: Chest X-Ray: Question left lower lobe infiltrate versus atelectasis. Poor pulmonary inflation. Perfusion: Normal. Ventilation:Decreased ventilation to the lower lobes, left greater than right. Significant clumping of the radiopharmaceutical near the lucila. IMPRESSION: 1. Low probability VQ examination. Ventilation limited due to significant clumping of pharmaceutical near the lucila. Modified PIOPED II criteria Probability Criteria High Two or more segments of V/Q mismatch Low Normal Perfusion, Non segmental perfusion abnormalitie s, pleural effusion in at least 1/3 of pleural cavity with no other defect Radiograph/perfusion matched defect in mid to upper lung confined to segment, one to three small segmental perfusion defects (<25% of segment) Perfusion defect smaller than corresponding radiogra phic lesion. Intermediate All other findings DATA REPOSITORY:
--- NOTE | 2021-01-30 13:46 | W.PM.DS.N ---
Date of service: 01/30/21 Time of Service: 13:46 DS: Diagnosis Discharge Diagnosis (1) Chest pain: Status: Acute (2) Leukocytosis: Status: Acute Discharge Plan Disposition Patient Disposition: SNF (LEVEL 1) [facility] Condition: Stable Discharge Details Reason For Visit: HCAP Admit Date/Time: 01/28/21 15:33 Admit Provider: Fabi Hi Attending Provider: Fabi Hi Primary Care Provider: Patricia Pelayo V Home Meds and New Rx's Prescriptions: No Action aspirin [Aspir-Low] 81 MG tablet,delayed release (DR/EC) 81 mg PO DAILY RF: 0 meclizine [Antivert] 25 MG tablet 25 mg PO .Q6HR PRNRF: 0 Centrum Silver 1 EACH tablet 1 tab PO DAILY RF: 0 Glucosamine Sulf-Chondroitin 1 EACH capsule 2 cap PO DAILY RF: 0 Fish Oil 300 MG capsule 1 cap PO DAILY RF: 0 amlodipine 5 MG tablet 1 tab PO DAILY RF: 0 furosemide 20 MG tablet 1 tab PO DAILY RF: 0 (DME) Blood Glucose Test 1 EACH strip 1 ea Miscellaneous DAILY Qty: 90 RF: 0 (DME) lancets [Lancets,Ultra Thin] 1 EACH misc 1 ea Miscellaneous DAILY Qty: 90 RF: 0 acetaminophen [Tylenol] 325 MG tablet 650 mg PO Q4H PRN PRNRF: 0 glimepiride 2 MG tablet 2 mg PO DAILY@0800 Qty: 30 RF: 0 lisinopril 5 MG tablet 5 mg PO DAILY Qty: 30 RF: 0 pregabalin [Lyrica] 25 MG capsule 75 mg PO HS Qty: 30 RF: 0 Discharge Instructions Referrals: Patricia Pelayo MD [Primary Care Provider] - DS: Data Vitals/I&O Vitals and I&O: Vital Signs Temperature 36.6 C 01/30/21 11:27 Temperature Source Tympanic 01/30/21 11:27 Pulse 80 01/30/21 13:02 Pulse Rhythm Regular 01/30/21 02:19 Pulse 72 01/28/21 15:20 Respiratory Rate 16 01/30/21 13:02 Respiratory Effort 01/30/21 02:19 Respiratory Depth Normal 01/30/21 02:19 Respiratory Pattern Normal 01/30/21 02:19 Blood Pressure 121/65 01/30/21 11:27 Blood Pressure Mean 72 01/28/21 15:06 Pulse Oximetry 96 01/30/21 13:02 Oxygen Delivery Method Room Air 01/30/21 13:01 Oxygen Flow Rate 0 01/30/21 13:01 Pain Level 10 01/30/21 07:58 Comment 01/29/21 05:13 Intake & Output 01/29/21 01/30/21 01/30/21 23:59 11:59 23:59 Intake Total 640 / 760 100 / 340 240 / 340 Output Total 200 / 600 875 / 875 Balance 440 / 160 -775 / -535 240 / -535 Weight 86.4 kg Intake: IV 150 / 150 100 / 100 Oral 490 / 610 240 / 240 Output: Urine 200 / 600 875 / 875 Other: Urine Color Yellow Yellow Urine Appearance Clear Clear Urine Odor None Strong Stool Occult Blood Negative Stool Size Small Stool Characteristics Soft Voiding Methods Toilet Toilet Data Completed and Pending Labs on day of discharge: Labs from last 24 hours 01/30/21 01/30/21 05:35 05:35 WBC Pending RBC Pending Hgb Pending Hct Pending MCV Pending MCH Pending MCHC Pending RDW Pending Plt Count Pending MPV Pending Immature Gran % Pending Neutrophils % Pending Lymphocytes % Pending Monocytes % Pending Eosinophils % Pending Basophils % Pending Absolute Neutrophils Pending Absolute Lymphocytes Pending Absolute Monocytes Pending Absolute Eosinophils Pending Absolute Basophils Pending Sodium Pending Potassium Pending Chloride Pending Carbon Dioxide Pending Anion Gap Pending BUN Pending Creatinine Pending Estimated GFR/1.73 m2 Pending Glucose Pending Calcium Pending Preliminary micro results at discharge 01/29/21 09:55 Blood Culture - Preliminary Blood NO GROWTH 24 HOURS 01/29/21 09:46 Blood Culture - Preliminary Blood NO GROWTH 24 HOURS [facility] Social History Smoking/Tobacco Use Status: Never Smoking risk assessment performed?: Yes Alcohol Intake: never Drug use: Never Substance use type: does not use Do you feel safe at home: Yes Do you feel safe in your relationship?: Yes
--- NOTE | 2021-01-30 14:23 | PT.INNT ---
Date of service: 01/30/21 Time of Service: 14:24 PT Notes Visit Reasons: HCAP 01/30/2021 Patient refused to participate in PT in both a.m. and p.m., stating that she is too tired and has a stiff neck, she also reports I got enough exercise downstairs earlier. Will attempt to resume PT services tomorrow morning.
[2021-01-30 14:26] LABS: HCT 36.5 % (36.0-46.0); HGB 11.3 g/dL (11.2-15.7); MCH 26.5 pg (27.0-33.0); MCV 85.5 fL (80-95); MPV 9.5 fL (8.0-11.0); Nucleated RBC 0 %; Platelet Count 363 10^3/uL (130-400); RBC 4.27 10^6/uL (3.93-5.22); RDW 16.1 % (11.7-14.6); RDW-SD 50.5 fL; WBC 15.49 10^3/uL (4.4-10.8)
[2021-01-30 14:39] LABS: Anion Gap 11.7 mmol/L (3-11); BUN 42 mg/dL (7-18); CO2 22.3 mmol/L (21.0-32.0); CREATININE 2.2 mg/dL (0.55-1.02); Calcium 8.6 mg/dL (8.5-10.1); Chloride 104 mmol/L (98-107); Estimated GFR 21.48 (mL/min/1.73m2); Glucose 192 mg/dL (74-106); Potassium 3.8 mmol/L (3.5-5.1); Sodium 138 mmol/L (136-145)
[2021-01-30 14:48] LABS: Absolute Lymphocyte Count 2.63 10^3/uL (1.2-3.4); Absolute Monocyte Count 0.93 10^3/uL (0.1-0.8); Absolute Neutrophil Count 11.93 10^3/uL (1.2-6.7); Atypical Lymphocytes % 5
[2021-01-30 14:49] LABS: Diff Comment Manual Differential; RBC Morphology Normal
--- NOTE | 2021-01-30 17:16 | PGE_ITS ---
Date of Service Date of service: 01/30/21 Time of Service: 17:16 Assessment and Plan Assessment and plan (1) Chest pain: Status: Acute Assessment and plan: thought to be musculoskeletal pain, but with pleuritic pain and elevated d-Dimer must exclude PE. Will avoid CTA given renal function (GFR 23) given empiric lovenox. Right LE U/S negative, patient refused completion of ultrasound on left. VQ scan Low probability VQ examination. Ventilation limited due to significant clumping of pharmaceutical near the lucila. patient not really interested in much work up (2) Leukocytosis: Status: Acute Assessment and plan: no clear source of infection. no evidence of pneumonia on CT and no cough or shortness of breath she has been afebrile. repeat UA pending, todays sample grossly contaminated. has been given broad spectrum antibiotics, zosyn day 2, while blood cutures and UA pending continue to look for source of infection (3) Palliative care encounter: Status: Acute Assessment and plan: seen by Dr Serna as she does not want most care or investigations. patient verifies that she does not want IV fluids or wanting to be here any longer. COLST form completed. plan is to discharge back [facility] tomorrow. discussed with Dr Hi Subjective Subjective Patient reports: no new complaints Interval history since last seen: patient still declining treatment and care. Exam Narrative Exam Narrative: Exam Narrative: Constitutional: elderly frail female, well and [id number], difficult historian HENT: head atraumatic/normocephalic/normal inspection, mucous membranes moist Eyes: conjunctiva normal, sclera normal, Neck: normal ROM Chest: normal inspection Resp: normal work of breathing, LCTAB Cardio: normal rate, normal rhythm, no murmur appreciated GI: round, abdomen soft, non-tender, non-distended Back: normal inspection, no rash Skin: warm, dry, normal color, no rash Neuro: alert, not altered, grossly non-focal, normal tone Ext: no edema Psych: irritated, refusing some care and testing Objective Last Vital Signs Temp 36.6 C 01/30/21 11:27 Pulse 80 01/30/21 13:02 Resp 16 01/30/21 13:02 BP 121/65 01/30/21 11:27 Pulse Ox 96 01/30/21 13:02 Laboratory Results - last 24 hr 01/30/21 01/30/21 14:12 14:12 WBC 15.49 H RBC 4.27 Hgb 11.3 Hct 36.5 MCV 85.5 MCH 26.5 L MCHC 31.0 L RDW 16.1 H Plt Count 363 MPV 9.5 Immature Gran % 0.0 Neutrophils % 77.0 Lymphocytes % 12.0 Atypical Lymphs % 5 Monocytes % 6.0 Eosinophils % 0.0 Basophils % 0.0 Nucleated RBC % 0 Absolute Neutrophils 11.93 H Absolute Lymphocytes 2.63 Absolute Monocytes 0.93 H Absolute Eosinophils 0.00 Absolute Basophils 0.00 RBC Morphology Normal Sodium 138 Potassium 3.8 Chloride 104 Carbon Dioxide 22.3 Anion Gap 11.7 H BUN 42 H Creatinine 2.2 H Estimated GFR/1.73 m2 21.48 Glucose 192 H Calcium 8.6
[2021-01-30] MEDS: Enoxaparin 100 MG/ML SYR 90 MG SC (18:28)
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
[2021-01-31 00:48] VITALS: BP 114/56; PULSE 82; RESP 20; TEMP 36.7; O2SAT 99
[2021-01-31] MEDS: PIPERACILLIN/TAZO 3.375 GM in Normal Saline 50 ML IVPB (03:47)
[2021-01-31 04:34] VITALS: BP 116/61; PULSE 82; RESP 17; TEMP 37; O2SAT 95
[2021-01-31 05:35] VITALS: RESP 8; O2SAT 96
[2021-01-31] MEDS: Albuterol/Ipratropium 3 ML UPD VIAL UPD (05:35)
[2021-01-31 07:33] VITALS: BP 113/75; PULSE 78; RESP 18; TEMP 36.5; O2SAT 93
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
--- NOTE | 2021-01-31 09:24 | CMDISCH_ITS ---
- If Service Date Differs Date of service: 01/31/21 Time of Service: 09:24 LACE Index Scoring Tool - Questions: Length of Stay (in days): 3 Acuity (Admit via E.D.?): Yes Comorbidities: Liver or Renal Disease E.D. Visits: 1 - Answers: Total Score: 12 Risk of Readmission: High Risk Care Management Discharge Reason for Hospitalization: Hospital Acquired Pneumonia Discharge Plan: Valeria will return to her home at [facility] and She will follow up with their provider and plan of care. Valeria will transport via facility wheelchair van. Patient/Family Education Needs: Limitations, expectations, Ask Me Three
--- NOTE | 2021-01-31 13:04 | INDS_ITS ---
Date of service: 01/31/21 Time of Service: 13:04 PT Notes Visit Reasons: [facility] Physical Therapy Inpatient Discharge Summary Date: 01/31/2021 Dates of service: 01/29/2021 through 01/30/2021 This is a clinical summary of care provided on the duration of dates listed above. No charge was made in the completion of this documentation. Referring Doctor: Fabi Hi MD PT Orders: PT CONSULT: Limited ability Precautions: Fall. Standard. Activity as tolerated. Patient Profile/Admitting Diagnosis: Valeria is an 80-year-old female who presented to the ED on 01/28/2021 with chest pain associated with deep breathing and chronic leg pain swelling. CT of the chest showed negative for pneumonia. EKG exhibited no acute abnormality. Troponin negative. PMHX: Primary osteoarthritis of left knee Physical deconditioning Renal insufficiency Anemia Hypertension Kidney stones Cellulitis of right lower leg Pseudomonal bacteremia Diabetes mellitus Social History/Home Situation: Valeria is a longtime resident of [facility]. Supervision with all mobility ADL performance using front wheeled walker. Equipment Owned/DME: Front wheel walker Subjective: NT. See most recent SENIOR SECURITY ARCHITECT notes. Objective: General Observation: NT. See most recent SENIOR SECURITY ARCHITECT notes. Mental Status: NT. See most recent SENIOR SECURITY ARCHITECT notes. Pain: NT. See most recent SENIOR SECURITY ARCHITECT notes. Vital Signs: NT. See most recent SENIOR SECURITY ARCHITECT notes. ROM: Right Upper Extremity: Shoulder Flexion allows only up to about 90 degrees. Shoulder abduction allows only up to about 90 degrees. Elbow flexion WFL. Wrist flexion WFL. Opening and closing of hand WFL. Left Upper Extremity: Shoulder Flexion allows only up to about 90 degrees. Shoulder abduction allows only up to about 90 degrees. Elbow flexion WFL. Wrist flexion WFL. Opening and closing of hand WFL. Right Lower Extremity: Hip flexion WFL. Hip abduction WFL. Knee flexion WFL. Ankle dorsiflexion WFL. Ankle plantarflexion WFL. Left Lower Extremity: Hip flexion WFL. Hip abduction WFL. Knee flexion WFL. Ankle dorsiflexion WFL. Ankle plantarflexion WFL. Strength: Right Upper Extremity: Shoulder flexors 3-/5. Shoulder abductors 3-/5. Elbow flexors 4/5. Elbow extensors 4/5. Alarm Service Technician strong. Left Upper Extremity: Shoulder flexors 3-/5. Shoulder abductors 3-/5. Elbow flexors 4/5. Elbow extensors 4/5. Alarm Service Technician strong. Right Lower Extremity: Hip flexors 4-/5. Hip abductors 4-/5. Knee flexors 4-/5. Knee extensors 4- are really otherwise 4-/5. Ankle dorsiflexors 4-/5. Ankle plantarflexors 4-/5. Left Lower Extremity: Hip flexors 4-/5. Hip abductors 4-/5. Knee flexors 4-/5. Knee extensors 4- are really otherwise 4-/5. Ankle dorsiflexors 4-/5. Ankle plantarflexors 4-/5. Sensation: Intact as to pain and pressure on bilateral lower extremities. Bed Mobility/Transfers: Supine to sit contact-guard assist Sit to supine contact-guard assist Sit to stand contact-guard assist Stand to sit contact-guard assist Bed to chair contact-guard assist Chair to bed contact-guard assist Gait: Patient through level surface ambulation of up to 125 feet using front wheeled walker with full weight bearing requiring standby assist and wheelchair follow by PT with mild shortness of breath seen requiring 2 seated rests. Saturated at 98% on 0.5 L of oxygen per minute. Increased forefoot pronation on bilateral side with right more affected than the left. Denies chest pain, dizziness, headache, and lightheadedness throughout ambulation activity. Balance: Static Sitting: Normal Dynamic Sitting: Normal Static Standing: Fair Dynamic Standing: Fair Assessment: Valeria continues to require the use of a front wheeled walker increase activity tolerance and fall risk during all mobility ADL performance, shortness of breath, impaired gait pattern, and strength deficits resulting from admitting diagnosis. Patient continues to presents with clinical signs and symptoms consistent with current/admitting diagnoses that have resulted to mobility limitations, gait instability, generalized weakness, and impairment of motor control as demons trated by the following impairment level findings: 1. Decreased strength to B UE/LE major muscle groups 2. Impaired standing balance 3. Impaired activity tolerance 4. B LE swelling (chronic) Impairments continue to contribute to the following functional limitations: 1. Inability to safely ambulate without assistive device and physical assistance 2. Increase completion time for mobility ADL performance 3. Increased fall risk 4. Inability to negotiate steps alone safely Goals: Goals X1 week 1. Supine-Sit independent NOT MET 2. Sit-Supine independent NOT MET 3. Sit-Stand independent NOT MET 4. Stand-Sit independent NOT MET 5. Bed-Chair independent NOT MET 6. Chair-Bed independent NOT MET 7. Independent gait on level surface with use of least restrictive device for at least 300 feet without report of pain nor dyspnea NOT MET 8. Good static and dynamic standing balance/tolerance NOT MET DISCHARGE RECOMMENDATIONS: Return to SNF when medically cleared by hospitalist. TREATMENT CODE/TIME: MO Thank you for the opportunity to participate in the care of this patient. Gilma Lloyd PT, DPT, CLT [facility] [place], [place]
== END 2021-01-31 10:20 | disposition skilled nursing facility (03) | DRG 204 ==
LOC: ER 15:41 → MS 16:51
PROVIDERS: Nurse Practitioner Acute Care; Registered Nurse Emergency; Admitting Provider Internal Medicine; Emergency Provider Student in an Organized Health Care Education/Training Program; PCP Family Medicine; Visit Provider Internal Medicine
DX: R07.81 Pleurodynia (principal); Z68.41 Body mass index [BMI] 40.0-44.9, adult; D72.829 Elevated white blood cell count, unspecified; Z20.822 Contact with and (suspected) exposure to COVID-19; Z51.5 Encounter for palliative care; R54 Age-related physical debility; N18.9 Chronic kidney disease, unspecified; E11.22 Type 2 diabetes mellitus with diabetic chronic kidney disease; I12.9 Hypertensive chronic kidney disease with stage 1 through stage 4 chronic kidney disease, or unspecified chronic kidney disease; F34.1 Dysthymic disorder; Z66 Do not resuscitate; Z62.811 Personal history of psychological abuse in childhood; Z60.4 Social exclusion and rejection; E66.01 Morbid (severe) obesity due to excess calories
CPT/HCPCS: 36410; 36415; 71250; 80048; 80053; 80076; 84145; 87040; 87637; 93005; 96365; 96367; 97110; 97162; 97530; 99222; 99233; 99239; 99255; 99285; 71045; 71046; 78582; 81003; 81015; 83735; 83880; 84484; 85025; 85379; 87086; 93010; 93971; 94640; J1650; J2543; J7620

== ENCOUNTER 2021-02-18 20:07 | Outpatient (REF) | payer MEDICARE, MEDICAID, SELFPAY ==
[2021-02-18 19:41] LABS: Abs Immature Grans 0.12 10^3/uL (0.0-0.06); Absolute Lymphocyte Count 0.92 10^3/uL (1.2-3.4); Absolute Monocyte Count 0.99 10^3/uL (0.1-0.8); Absolute Neutrophil Count 12.66 10^3/uL (1.2-6.7); Basophils % 0.3; Eosinophils % 0.7; HGB 11.6 g/dL (11.2-15.7); Immature Grans % 0.8; Lymphocytes % 6.2; MCHC 30.5 % (32.0-36.0); MCV 85.2 fL (80-95); MPV 8.7 fL (8.0-11.0); Monocytes % 6.7; Neutrophils % 85.3; Nucleated RBC 0 %; Platelet Count 544 10^3/uL (130-400); RBC 4.46 10^6/uL (3.93-5.22); RDW 16.5 % (11.7-14.6); RDW-SD 50.9 fL; WBC 14.84 10^3/uL (4.4-10.8)
[2021-02-18 19:49] LABS: Absolute Basophil Count 0.04 10^3/uL (0.0-0.2)
[2021-02-18 20:10] LABS: ALT 26 U/L (14-59); AST 22 U/L (15-37); Albumin 2.3 g/dL (3.4-5.0); Alkaline Phosphatase 87 U/L (46-116); Anion Gap 11.8 mmol/L (3-11); BUN 44 mg/dL (7-18); Bilirubin, Total 0.2 mg/dL (0.2-1.0); CO2 20.2 mmol/L (21.0-32.0); CREATININE 1.8 mg/dL (0.55-1.02); Calcium 8.3 mg/dL (8.5-10.1); Chloride 110 mmol/L (98-107); Estimated GFR 27.07 (mL/min/1.73m2); Sodium 142 mmol/L (136-145); Total Protein 7.1 g/dL (6.4-8.2)
[2021-02-18 20:13] LABS: Hemoglobin A1C 7.1 % (<5.7)
[2021-02-18 20:16] LABS: Glucose 48 mg/dL (74-106)
== END 2021-02-18 20:08 | disposition home or self-care (01) ==
LOC: LBN 20:07
PROVIDERS: PCP Family Medicine; Visit Provider Family Medicine
DX: E11.40 Type 2 diabetes mellitus with diabetic neuropathy, unspecified (principal); N18.9 Chronic kidney disease, unspecified; I10 Essential (primary) hypertension; M62.81 Muscle weakness (generalized)
CPT/HCPCS: 80053; 83036; 83735; 85025

== ENCOUNTER 2021-02-22 15:33 | Outpatient (CLI) | payer MEDICARE, MEDICAID, SELFPAY ==
--- NOTE | 2021-02-22 14:13 | DI.RAD_ITS ---
Exam(s) XR FOOT LT COMPLETE XR ANKLE LT COMPLETE EXAM: XR ANKLE LT COMPLETE and XR foot LT complete CLINICAL HISTORY: PAIN, S/P FALL TECHNIQUE: 2D digital imaging was performed. COMPARISON: CR XR FOOT LT COMPLETE from 02/22/2021 FINDINGS: BONES: No acute fracture is present. No bony destructive lesion is seen. The bones are osteopenic. JOINTS:The ankle mortise is normally aligned. There is loss of the normal plantar arch. No dislocati on is present. SOFT TISSUE: Vascular calcification is present. There is diffuse soft tissue swelling of the foot. IMPRESSION: 1. No acute fracture or dislocation of the left foot and ankle. 2. Diffuse soft tissue swelling of the foot. DATA REPOSITORY: RADIATION DOSE DELIVERED:
== END 2021-02-22 15:53 ==
PROVIDERS: PCP Family Medicine; Visit Provider Nurse Practitioner Family
DX: M25.572 Pain in left ankle and joints of left foot (principal); M79.89 Other specified soft tissue disorders; M85.88 Other specified disorders of bone density and structure, other site
CPT/HCPCS: 73610; 73630